=== PATIENT | female | born 1990 | race Caucasian/White ===

== ENCOUNTER 2016-09-29 12:26 | Emergency (ER) | payer MEDICAID, SELFPAY ==
[~2016-09-29] VITALS: Ht 154.9 cm; Wt 96.8 kg
[2016-09-29 12:26] VITALS: BP 131/72
[~2016-09-29 12:26] MED LIST: LAMI25TA PO; PROZ20CA11 PO; TRAZ50TA11 PO; no home medications
[2016-09-29] MEDS ORDERED: ZOFR4TAB3 PO (14:42)
[2016-09-29] MEDS ORDERED: MACR100C43 PO (14:42)
== END 2016-09-29 15:04 | disposition home or self-care (01) ==
LOC: M ED 12:26
DX: R10.30 Lower abdominal pain, unspecified (principal); N39.0 Urinary tract infection, site not specified; M54.9 Dorsalgia, unspecified; M32.9 Systemic lupus erythematosus, unspecified; F17.200 Nicotine dependence, unspecified, uncomplicated; Z79.899 Other long term (current) drug therapy; Z91.040 Latex allergy status; Z91.02 Food additives allergy status; Z91.89 Other specified personal risk factors, not elsewhere classified

== ENCOUNTER 2016-12-13 15:19 | Emergency (ER) | payer SELFPAY ==
[~2016-12-13] VITALS: Ht 154.9 cm; Wt 90.9 kg
[~2016-12-13 15:19] MED LIST changes: +MACR100C43 PO; +ZOFR4TAB3 PO
[2016-12-13 15:20] VITALS: BP 144/80
[2016-12-13] MEDS ORDERED: HYDR25OIN TOP (18:02)
[2016-12-13] MEDS ORDERED: CLAR1TAB2 PO (18:02)
== END 2016-12-13 18:27 | disposition home or self-care (01) ==
LOC: M ED 15:19
DX: S20.469A Insect bite (nonvenomous) of unspecified back wall of thorax, initial encounter (principal); S20.369A Insect bite (nonvenomous) of unspecified front wall of thorax, initial encounter; S40.861A Insect bite (nonvenomous) of right upper arm, initial encounter; S40.862A Insect bite (nonvenomous) of left upper arm, initial encounter; W57.XXXA Bitten or stung by nonvenomous insect and other nonvenomous arthropods, initial encounter; Y92.9 Unspecified place or not applicable; Y93.9 Activity, unspecified; Y99.9 Unspecified external cause status; F31.9 Bipolar disorder, unspecified; F17.200 Nicotine dependence, unspecified, uncomplicated; Z91.040 Latex allergy status; Z91.89 Other specified personal risk factors, not elsewhere classified; Z91.018 Allergy to other foods

== ENCOUNTER 2017-02-01 19:20 | Emergency (ER) | payer SELFPAY ==
[~2017-02-01] VITALS: Ht 154.9 cm; Wt 86.4 kg
[~2017-02-01 19:20] MED LIST changes: +CLAR1TAB2 PO; +HYDR25OIN TOP
[2017-02-01] MEDS ORDERED: IBUPROFEN 600 MG TAB PO ONE (21:15)
--- NOTE | 2017-02-01 22:30 | REPUSA ---
CLINICAL HISTORY: Left upper extremity redness, pain and swelling. Medical concern for abscess. TECHNIQUE: US soft tissue, left upper extremity COMPARISON: No study for comparison is available at the time of interpretation. Focused ultrasound was performed in the region of concern in the left forearm. The underlying soft tissues appear diffusely edematous. No cystic or solid masses were identified by the ultrasound manager. IMPRESSION: Diffuse cellulitis without evidence of abscess.
[2017-02-01] MEDS ORDERED: BACT800T5 PO (22:36)
[2017-02-01 22:38] VITALS: BP 126/68
[2017-02-01] MEDS ORDERED: BACTRIM 160MG/800MG DS TAB PO ONE (22:45)
== END 2017-02-01 22:48 | disposition home or self-care (01) ==
LOC: M ED 19:20
DX: L03.114 Cellulitis of left upper limb (principal); F32.9 Major depressive disorder, single episode, unspecified; M54.9 Dorsalgia, unspecified; Z87.440 Personal history of urinary (tract) infections; F17.200 Nicotine dependence, unspecified, uncomplicated; Z91.040 Latex allergy status; Z91.018 Allergy to other foods; Z91.89 Other specified personal risk factors, not elsewhere classified

== ENCOUNTER 2017-09-12 10:37 | Emergency (ER) | payer SELFPAY, MEDICAID ==
[2017-09-12 11:18] LABS: AMORPHOUS SEDIMENT SMALL (NEGATIVE); APPEARANCE, URINE HAZY (CLEAR); BACTERIA, URINE AUTO NEGATIVE (NEGATIVE); BILIRUBIN, URINE AUTO NEGATIVE (NEGATIVE); BLOOD, URINE BLOOD NEGATIVE (NEGATIVE); COLOR, URINE YELLOW (YELLOW); GLUCOSE, URINE (UA) AUTO NEGATIVE (NEGATIVE); KETONE, URINE AUTO NEGATIVE (NEGATIVE); LEUKOCYTE ESTERASE, URINE AUTO TRACE (NEGATIVE); MUCUS, URINE SMALL (NEGATIVE); NITRITE, URINE AUTO NEGATIVE (NEGATIVE); PROTEIN, URINE AUTO NEGATIVE (NEGATIVE); RBC, URINE AUTO 3 /HPF (0-3); SPECIFIC GRAVITY URINE AUTO 1.025 (1.002-1.035); SQUAMOUS EPITHELIAL CELL UR AU 5 /HPF (0-6); WBC, URINE AUTO 2 /HPF (0-3)
[2017-09-12] MEDS: NS 1,000 ML IV (12:07)
[2017-09-12 12:08] LABS: BASO # 0.1 10^3/uL (0.0-0.2); BASO % 0.7 % (0.0-1.0); EOS # 0.3 10^3/uL (0.0-0.50); EOS % 2.9 % (0.0-3.0); HEMATOCRIT 45.3 % (36.0-47.0); HEMOGLOBIN 15.8 g/dl (12.0-15.5); IMMATURE GRANULOCYTE % 0.2 % (0-3.0); LYMPH # 2.5 10^3/uL (1.5-6.5); LYMPH % 27.1 % (24.0-44.0); MEAN CORPUSCULAR HEMOGLOBIN 30.2 pg (27.0-33.0); MEAN CORPUSCULAR HGB CONC 34.9 g/dl (32.0-36.5); MEAN CORPUSCULAR VOLUME 86.6 fl (80.0-96.0); MONO # 0.6 10^3/uL (0.0-0.8); NEUTROPHILS # 5.6 10^3/uL (1.8-7.7); NEUTROPHILS % 62.1 % (36.0-66.0); PLATELET COUNT, AUTOMATED 409 10^3/uL (150-450); RED BLOOD COUNT 5.23 10^6/uL (4.00-5.40)
[2017-09-12] MEDS: KETOROLAC 30 MG/ML VIAL (J1885) IV (12:08)
[2017-09-12 12:38] LABS: ANION GAP 7 MEQ/L (8-16); BLOOD UREA NITROGEN 9 MG/DL (7-18); CALCIUM LEVEL 9.2 MG/DL (8.5-10.1); CARBON DIOXIDE LEVEL 27 MEQ/L (21-32); CHLORIDE LEVEL 107 MEQ/L (98-107); CREATININE FOR GFR 0.83 MG/DL (0.55-1.30); GLOMERULAR FILTRATION RATE > 60.0 (>60); GLUCOSE, FASTING 91 MG/DL (70-100); POTASSIUM SERUM 4.5 MEQ/L (3.5-5.1); SODIUM LEVEL 141 MEQ/L (136-145)
[2017-09-12 14:37] LABS: CHLAMYDIA DNA AMPLIFICATION NEGATIVE (NEGATIVE); GC DNA AMPLIFICATION NEGATIVE (NEGATIVE)
== END 2017-09-12 15:27 | disposition home or self-care (01) ==
LOC: M ED 10:37
DX: R10.9 Unspecified abdominal pain (principal); F17.210 Nicotine dependence, cigarettes, uncomplicated; Z97.5 Presence of (intrauterine) contraceptive device; Z87.440 Personal history of urinary (tract) infections; Z91.040 Latex allergy status; Z91.018 Allergy to other foods; Z91.048 Other nonmedicinal substance allergy status
CPT/HCPCS: J1885

== ENCOUNTER 2017-10-04 15:17 | Emergency (ER) | payer SELFPAY | END 2017-10-04 17:26 | disposition home or self-care (01) | LOC: M ED 15:17 | DX: H66.92 Otitis media, unspecified, left ear (principal); R42 Dizziness and giddiness; F31.9 Bipolar disorder, unspecified; Z97.5 Presence of (intrauterine) contraceptive device; Z91.018 Allergy to other foods; Z91.040 Latex allergy status; Z91.048 Other nonmedicinal substance allergy status; F17.210 Nicotine dependence, cigarettes, uncomplicated | CPT/HCPCS: 99282 ==

== ENCOUNTER → 2019-07-06 | Outpatient (CLI) | payer OTHER ==
[~2019-07-06] MED LIST changes: +AMOX875T PO; +BACT800T5 PO; +MIRE1IUD IU; +TRAZ-252 PO; -TRAZ50TA11 PO; +ZOFR4TAB14 PO; -ZOFR4TAB3 PO
== END ==
LOC: M LABSMTC 11:20
PROVIDERS: ATTEND Family Medicine
DX: Z03.818 Encounter for observation for suspected exposure to other biological agents ruled out (principal); Z11.59 Encounter for screening for other viral diseases
CPT/HCPCS: C8903; U0003

== ENCOUNTER 2020-02-25 19:00 | Emergency (ER) | payer OTHER ==
[~2020-02-25] VITALS: Ht 157.5 cm; Wt 113.6 kg
[2020-02-25 21:27] VITALS: BP 141/89
== END 2020-02-25 21:48 | disposition home or self-care (01) ==
LOC: M ED 19:00
DX: U07.1 COVID-19 (principal); F31.9 Bipolar disorder, unspecified; F17.200 Nicotine dependence, unspecified, uncomplicated; Z91.018 Allergy to other foods; Z91.040 Latex allergy status

== ENCOUNTER → 2020-11-05 | Outpatient (REF) | payer OTHER | LOC: M LAB REF 16:36 | PROVIDERS: ATTEND Physician Assistant | DX: J02.9 Acute pharyngitis, unspecified (principal) ==

== ENCOUNTER 2024-06-20 11:23 | Emergency (ER) | payer OTHER, SELFPAY ==
[~2024-06-20] VITALS: Ht 157.5 cm; Wt 99.7 kg
[2024-06-20] MEDS: NS (Normal Saline) 0.9% 1,000 ML IV ONE (14:56)
[2024-06-20] MEDS: KETOROLAC 30 MG/ML 1ML VIAL IV ONE (14:57)
[2024-06-20] MEDS: diphenhydrAMINE 50MG/ML VIAL IV ONE (14:57)
[2024-06-20] MEDS: METOCLOPRAMIDE INJ 10MG/2ML VIAL IV ONE (14:57)
[2024-06-20 16:20] VITALS: BP 111/57; TEMP 97.8; O2SAT 100
== END 2024-06-20 16:24 | disposition home or self-care (01) ==
LOC: M ED 11:23
DX: R51.9 Headache, unspecified (principal); F31.9 Bipolar disorder, unspecified; M54.50 Low back pain, unspecified; Z91.040 Latex allergy status; Z91.018 Allergy to other foods; Z91.048 Other nonmedicinal substance allergy status
CPT/HCPCS: 84702; 96361; 96374; 96375; 99283; J1100; J1200; J1885; J2765

== ENCOUNTER 2025-01-11 09:56 | Emergency (ER) | payer OTHER, SELFPAY ==
[~2025-01-11] VITALS: Ht 157.5 cm; Wt 101.9 kg
[~2025-01-11 09:56] MED LIST changes: -PROZ20CA11 PO; +PROZ20CA25 PO
[2025-01-11] MEDS ORDERED: NAPR-837 PO (11:34)
[2025-01-11 11:40] VITALS: BP 121/75; TEMP 96.9; O2SAT 99
== END 2025-01-11 11:43 | disposition home or self-care (01) ==
LOC: M ED 09:56
DX: S49.91XA Unspecified injury of right shoulder and upper arm, initial encounter (principal); X50.0XXA Overexertion from strenuous movement or load, initial encounter; M75.31 Calcific tendinitis of right shoulder; M54.50 Low back pain, unspecified; F31.9 Bipolar disorder, unspecified; Z91.040 Latex allergy status; Z91.018 Allergy to other foods; Z91.09 Other allergy status, other than to drugs and biological substances; Y92.89 Other specified places as the place of occurrence of the external cause; Y93.89 Activity, other specified; Y99.0 Civilian activity done for income or pay; Z79.1 Long term (current) use of non-steroidal anti-inflammatories (NSAID)